=== PATIENT | female | born 1980 | race African-American/Black ===

== ENCOUNTER → 2023-12-06 | Outpatient (REF) | payer OTHER ==
[~2023-12-06] MED LIST: IOPAMIDOL 370 MG/ML 100 ML INFUS..BTL INJ ONE
== END ==
LOC: CT 11:27
PROVIDERS: ATTEND Internal Medicine Gastroenterology
DX: R10.9 Unspecified abdominal pain (principal); R74.8 Abnormal levels of other serum enzymes; D64.9 Anemia, unspecified
CPT/HCPCS: 74177; Q9967